=== PATIENT | male | born 1995 | race Two or more races ===

== ENCOUNTER 2025-06-24 17:42 | Emergency (ER) | payer MEDICAID, OTHER ==
[~2025-06-24] VITALS: Ht 167.6 cm; Wt 79.5 kg
[2025-06-24 18:26] VITALS: PULSE 88; RESP 20; O2SAT 100
--- NOTE | 2025-06-24 18:37 | ED.PDOC ---
HPI (NEURO) HPI Comments HPI: Poor Historian. 29-year-old male with a recent diagnosis of seizure proximally seven months ago currently on Keppra. Patient states compliance with his medications. Patient states they recently increased his dose of Keppra. Patient had a witnessed seizure episode today while he was laying in bed. No fall or trauma. Patient is not sure with the ever performed in a CT scan of his head since he has been diagnosed with a seizure disorder. Patient denies any use of drugs or any other complaints. Patient is awake alert oriented answers questions appropriately and follows commands. Patient later in the course stated that he has nausea and vomiting for at least two weeks. Past Medical History: Seizure disorder, gastritis Past Surgical History: Denies any REVIEW OF SYSTEMS: CONSTITUTIONAL: Denies acute: fever, diaphoresis, chills, generalized weakness. HEAD: Denies acute: headache, photophobia Eyes: Denies acute: Double vision, vision loss, eye pain, eye discharge. EARS: Denies acute: tinnitus, hearing loss, ear discharge, ear pain, THROAT: Denies acute: sore throat, swelling, difficulty swallowing , pain with swallowing, change in voice. NECK: Denies acute: neck pain, neck swelling, stiff neck. HEART: Denies acute : chest pain, palpitations, LUNGS: Denies acute: SOB, wheezing, cough, hemoptysis ABDOMEN: Denies acute: abdominal pain, diarrhea, melena , hematemesis, hematochezia SKIN: Denies acute: rash, redness, lesions, itchiness. EXTREMITIES: Denies acute: calf pain, numbness, tingling, weakness, denies pain in extremity. Denies acute: Low back pain. Neuro: Denies acute: focal neurological deficit, motor or sensory focal neurological deficit, dizziness, change in mental status, loss of bowel or bladder function, cauda equina like symptoms. : Denies acute: dysuria, hematuria, flank pain, increase in urinary frequency. PSYCH: Denies acute: hallucination, suicidal ideation, homicidal ideation. PHYSICAL EXAM: General: ----no---acute distress, awake and alert. Head: normocephalic, atraumatic. No raccoon's eyes, no gatica sign. Neck: supple, trachea is midline, no swelling. Throat: Normal phonation. Eyes:, no erythema, no purulent discharge, no proptosis, no icterus. Heart: regular rate, regular rhythm, no significant murmur appreciated. Lungs: no apparent respiratory distress, Able to speak in full sentences. No wheezing, no rhonchi, no crackles. No stridors Clear to auscultation bilaterally. Abdomen: non tender to palpation, non distended, soft, no guarding, no rebound, + bowel sounds. Neuro: Awake, Alert, oriented to name, self, situation, follows commands GCS=15. Speech is normal. Skin: no petechia, no purpura, no cyanosis, non-pale, not jaundice. Lower extremities: --no - Pitting edema no deformity, no focal swelling, no calf TTP. Makes eye contact. moves all four extremities. Face: no apparent facial droop. PERRLA, EOM-I CN 2-12 are grossly intact, No nystagmus. ED COURSE: DISCLAIMER: This medical document was created using an electronic medical record system with voice recognition software and computerized dictation system. Although this document has been carefully reviewed, there might still be some phonetic and typographical errors. Occasional wrong-word or "sound-alike" substitutions may have occurred due to the inherent limitations of voice recognition software. These areas are purely typographical due to imperfections of the software programs and do not reflect any compromise in the patient's medical care. Please read the chart carefully and recognize, using context, where these substitutions have occurred. Chief Complaint: Seizure Time Seen by MD: 18:19 Reviewed Notes: Allergies Information Source: Patient Was a procedure done? Was a procedure done?: No Differential Diagnosis (SZ) Seizure: Other (SEIZUREDDX include not limited to CVA, cerebellar ischemia/infarct, carotid stenosis, vertebral/carotid artery dissection,, vertebrobasillary insufficiency, Intracranial mass/infection/bleed, encephalopathy, elctrolyte abnormality, thyroid disease, multiple sclerosis, hypoglycemia, drug toxicity, cardiac arrhythmia, sub-theraputic anti-convulsion medications, known seizure disorder, pseudo-seizure.) X-Ray, Labs, Meds, VS Vital Signs Date Time Temp Pulse Resp B/P (MAP) Pulse Ox O2 Delivery O2 Flow Rate FiO2 12/6/25 00:15 98.1 78 18 127/91 (103) 97 98.1 06/24/25 23:24 98.1 79 18 111/66 (81) 97 98.1 06/24/25 19:50 90 18 97 Nasal Cannula* 2 28 06/24/25 19:50 98.1 77 18 133/77 (95) 97 98.1 06/24/25 19:00 108 28 132/60 (84) 90 06/24/25 18:26 88 20 100 Room Air* 0 21 06/24/25 17:49 98.0 98 22 148/96 98 98.0 Lab Test 06/24/25 22:52 06/24/25 21:55 06/24/25 20:03 06/24/25 18:45 Range/Units Urine Color Light-yellow Yellow Urine Clarity Clear Clear Urine pH 5.5 5.0-9.0 Urine Specific [place] 1.018 1.001-1.035 Urine Protein 2+ H Negative Urine Ketones 1+ H Negative Urine Blood 1+ H Negative /uL Urine Nitrite Negative Negative Urine Bilirubin Negative Negative Urine Urobilinogen Normal Negative mg/dL Urine Leukocyte Esterase Negative Negative /uL Urine RBC 1 0 - 3 /hpf Urine Microscopic WBC 2 0-3 /HPF Urine Squamous Epithelial Cells Few <5 /hpf Urine Bacteria None seen None Seen /hpf Urine Glucose Normal Normal mg/dL Urine Opiates Screen Neg NEGATIVE Urine Fentanyl Screen Neg NEGATIVE Urine Barbiturates Screen Neg NEGATIVE Urine Phencyclidine Screen Neg NEGATIVE Urine Amphetamines Screen Neg NEGATIVE Urine Benzodiazepines Screen Pos NEGATIVE Urine Cocaine Screen Neg NEGATIVE Urine Cannabinoids Screen Pos NEGATIVE Lactic Acid Level 2.9 *H 22.0 *H 0.4-2.0 mmol/L White Blood Count 14.9 #H 23.0 H 4.4-10.8 10^3/uL Red Blood Count 5.21 5.47 4.5-5.90 10^6/uL Hemoglobin 13.7 14.4 13.5-17.5 g/dL Hematocrit 42.4 # 48.2 41.0-53.0 % Mean Corpuscular Volume 81.5 # 88.2 80.0-100.0 fL Mean Corpuscular Hemoglobin 26.3 L 26.4 L 28.0-32.0 pg Mean Corpuscular Hemoglobin Concent 32.3 29.9 L 32.0-36.0 g/dL Red Cell Distribution Width 18.1 H 18.4 H 11.8-14.3 % Platelet Count 331 446 140-450 10^3/uL Mean Platelet Volume 8.1 8.9 6.9-10.8 fL Neutrophils (%) (Auto) 86.7 H 70.4 37.0-80.0 % Lymphocytes (%) (Auto) 8.9 L 21.3 10.0-50.0 % Monocytes (%) (Auto) 3.7 6.5 0.0-12.0 % Eosinophils (%) (Auto) 0.5 1.1 0.0-7.0 % Basophils (%) (Auto) 0.2 0.7 0.0-2.0 % Neutrophils # (Auto) 12.9 H 16.2 H 1.6-8.6 10 ^3/uL Lymphocytes # (Auto) 1.3 4.9 0.4-5.4 10 ^3/uL Monocytes # (Auto) 0.5 1.5 H 0-1.3 10 ^3/uL Eosinophils # (Auto) 0.1 0.2 0-0.8 10 ^3/uL Basophils # (Auto) 0 0.2 0-0.2 10 ^3/uL Nucleated Red Blood Cells 0.2 0.1 % Sodium Level 139 # 145 136-145 mmol/L Potassium Level 4.2 3.3 L 3.5-5.1 mmol/L Chloride Level 105 104 98-107 mmol/L Carbon Dioxide Level 20 # < 10 *L 20-31 mmol/L Anion Gap 14 31.60964 H 5-15 Blood Urea Nitrogen 11 13 9-23 mg/dL Creatinine 1.06 1.36 H 0.700-1.30 mg/dL Glomerular Filtration Rate Calc 98 73 >90 mL/min BUN/Creatinine Ratio 10.4 9.6 L 10.0-20.0 Serum Glucose 135 H 164 H 74-106 mg/dL Calcium Level 9.7 10.9 H 8.7-10.4 mg/dL Total Bilirubin 0.3 0.4 0.2-1.0 mg/dL Aspartate Amino Transferase (AST) 28 25 13-40 U/L Alanine Aminotransferase (ALT) 30 36 7-40 U/L Alkaline Phosphatase 115 131 H 46-116 U/L Total Protein 8.3 H 9.3 H 5.7-8.2 g/dL Albumin 5.4 H 5.9 H 3.2-4.8 g/dL Levetiracetam Level Pending Prothrombin Time 10.6 9.3-11.8 sec Prothrombin Time INR 1.00 0.9-1.15 Activated Partial Thromboplast Time 27.9 24.5-34.5 SEC Magnesium Level 2.6 1.6-2.6 mg/dL Troponin I High Sensitivity 12 </=54 ng/L Current Medications Medications (Trade) Dose Ordered Sig/Reece Route Start Time Stop Time Status Last Admin Levetiracetam 100 ml @ 400 mls/hr ONCE ONCE IV 06/24/25 18:45 06/24/25 18:59 DC 06/24/25 18:46 Sodium Chloride 1,000 ml @ 1,000 mls/hr Q1H ONCE IV 06/24/25 18:45 06/24/25 19:44 DC 06/24/25 18:48 Lorazepam (Ativan Inj) 2 mg ONCE ONCE IV 06/24/25 18:45 06/24/25 18:46 DC 06/24/25 18:46 Ondansetron HCl (Zofran) 4 mg ONCE ONCE IV 06/24/25 18:45 06/24/25 18:46 DC 06/24/25 18:46 Lactated Ringer's 1,900 ml @ 1,000 mls/hr ONCE ONCE IV 06/24/25 19:30 06/24/25 21:23 DC 06/24/25 19:30 Vancomycin HCl 250 ml @ 250 mls/hr ONCE ONCE IV 06/24/25 20:30 06/24/25 21:29 DC 06/24/25 20:30 Cefepime HCl 50 ml @ 12.5 mls/hr ONCE ONCE IV 06/24/25 19:30 06/24/25 23:29 DC 06/24/25 19:30 Lactated Ringer's 1,000 ml @ 1,000 mls/hr Q1H ONCE IV 06/24/25 19:45 06/24/25 20:44 DC 06/24/25 19:45 Metoclopramide HCl (Reglan Injection) 5 mg ONCE ONCE IV 06/24/25 21:15 06/24/25 21:16 DC 06/24/25 21:25 Acetaminophen/ Hydrocodone Bitart ([place] 5/325MG Tab) 1 tab ONCE ONCE PO 06/24/25 22:30 06/24/25 22:31 DC 06/24/25 22:30 X-Ray, Labs, Meds, VS Comment [address] [address] Ph: [phone] DIAGNOSTIC IMAGING Diagnostic Imaging Report : [id number] Signed PATIENT: MAGGIE SAHAT: [id number] UNIT: [id number] : 1995 LOC: ER ROOM / BED: / AGE / SEX: 29 / M ADM STATUS: REG ER SERVICE 183 ORDERING PHYSICIAN: ROSY CARMONA DO PROCEDURE(s): HWOCT - HEAD WITHOUT CONTRAST REASON: DAJA ORDER NUMBER(s): [id number], ACCESSION NUMBER(s): [id number] CLINICAL HISTORY: TECHNIQUE: Helical scanning was performed of the head from the skull base to the vertex. Multiplanar reconstructions were performed. This exam was performed according to our departmental dose optimization program. Up-to-date CT equipment and radiation dose reduction techniques are utilized as appropriate. WID: COMPARISON: CT HEAD WITHOUT CONTRAST on DOS: 12/17/24 FINDINGS: There is no acute intracranial hemorrhage, CT evidence of acute ischemic changes, mass effect, midline shift, or extra-axial fluid collection. Ventricles are within normal limits The imaged intraorbital structures are unremarkable The imaged paranasal sinuses are clear. The mastoid air cells are clear. The calvarium is intact. IMPRESSION: NO ACUTE INTRACRANIAL FINDINGS ATED BY: PATRICA OAKES MD DICTATED DATE/TIME: 06/24/252038 SIGNED BY: PATRICA OAKES MD SIGNED DATE/TIME: 06/24/252038 CC: [address] [address] Ph: [phone] DIAGNOSTIC IMAGING Diagnostic Imaging Report : [id number] Signed PATIENT: MAGGIE SAHAT: [id number] UNIT: [id number] : 1995 LOC: ER ROOM / BED: / AGE / SEX: 29 / M ADM STATUS: REG ER SERVICE 183 ORDERING PHYSICIAN: ROSY CARMONA DO PROCEDURE(s): CXRP - CHEST PORTABLE REASON: daja ORDER NUMBER(s): [id number], ACCESSION NUMBER(s): [id number] CHEST RADIOGRAPH Indication: sz Technique: Single frontal view of the chest was obtained COMPARISON: XY CHEST PORTABLE on DOS: 02/25/25, XY CHEST PORTABLE on DOS: 12/17/24 FINDINGS: Lines and Tubes: None Lungs: Clear Pleura: No effusion. No pneumothorax. Cardiomediastinal contours: Unremarkable Bones: Unremarkable IMPRESSION: No acute disease. ATED BY: SUJIT JOHNSON MD DICTATED DATE/TIME: 06/24/251908 SIGNED BY: SUJIT JOHNSON MD SIGNED DATE/TIME: 06/24/251908 CC: Time of 1ST Reevaluation: 18:41 (I was just notified that the patient had another seizure episode.) Reevaluation 1ST: Unchanged Time of 2ND Reevaluation: 21:32 (The case was discussed with the [place] admitting team (HPI, physical exam, labs and diagnostic tests that were available at the time of disposition, ED course, treatment plan) on the phone. They agreed to transfer the patient to their service by ALS for further evaluation and treatment. --Bear-. Authorization number is--[id number] five [phone] [id number]. I was informed that the patient has history of cannabis marijuana abuse. Patient is not postictal in his back to his baseline.) Reevaluation 2ND: Improved Patient Education/Counseling: Diagnosis, Treatment Family Education/Counseling: No Family Present Comments MDM: patient presented with the above HPI.---seizure---workup was initiated. patient was found with the above mentioned diagnosis. the following medications were ordered: please refer to order lists of meds and tests obtained by myself Dr. Carmona. Patient ED course and VS have been stabilized. Patient has been reassessed in the ED and remained in a stable condition. Pertinent incidental findings were discussed with the patient and/or family. Patient/family voices understanding and is agreeable with plan. Patient has been observed in the ED adequate length of time to insure improvement/stability. Escalation of care considered: Consideration of escalation to observation or admission Patient meets sepsis criteria on initial presentation. Sepsis protocol was initiated. Patient was given fluids and empiric antibiotics. Patient was given antiemetics as well. Patient was transferred per insurance requirement to [facility] for further evaluation and treatment of their presentation. All the reports of any imaging studies that were ordered by myself were reviewed by myself. Departure 1 Departure Time of Disposition: 18:37 Impression: Primary Impression: Seizure Additional Impressions: Nausea and vomiting Sepsis Disposition: 02 SHORT TERM HOSPITAL Admit to: [facility] Condition: Guarded Discharged With: Self Critical Care Note Critical Care Time?: Yes (55 min-critical care time only) Critical care comment: Due to a high probability of clinically significant, life threatening deterioration, the patient required my highest level of preparedness to intervene emergently and I personally spent this critical care time directly and personally managing the patient. This critical care time included obtaining a history; examining the patient; pulse oximetry; ordering and review of studies; arranging urgent treatment with development of a management plan; evaluation of patient's response to treatment; frequent reassessment; and, discussions with other providers. This critical care time was performed to assess and manage the high probability of imminent, life-threatening deterioration that could result in multi-organ failure. It was exclusive of separately billable procedures and treating other patients and teaching time. Please see my other sections and the rest of the note for further information on patient assessment and treatment. I personally scribed for ROSY CARMONA DO ([email or web address]) on 06/24/25 at 21:19. Electronically submitted by [facility] ([email or web address]). ROSY CARMONA DO Jun 24, 2025 18:37
[2025-06-24] MEDS: LORazepam 2MG/ML-1ML VIAL IV ONE (18:46)
[2025-06-24] MEDS: LORazepam 2MG/ML-1ML VIAL ONE (18:46)
[2025-06-24] MEDS: levETIRAcetam 1000 mg/100ml 100 ML IV ONE (18:46)
[2025-06-24] MEDS: ONDANSETRON HCL 4 MG/2 ML VIAL IV ONE (18:46)
[2025-06-24] MEDS: ONDANSETRON HCL 4 MG/2 ML VIAL ONE (18:47)
[2025-06-24] MEDS: SODIUM CHLORIDE 0.9% 1,000 ML IV ONE (18:48)
[2025-06-24 19:04] LABS: Hematocrit 48.2 % (41.0-53.0); Hemoglobin 14.4 g/dL (13.5-17.5); Mean Corpuscular Hemoglobin 26.4 pg (28.0-32.0); Mean Corpuscular Volume 88.2 fL (80.0-100.0); Nucleated Red Blood Cells % 0.1 %
--- NOTE | 2025-06-24 19:11 | DVH ---
CHEST RADIOGRAPH Indication: sz Technique: Single frontal view of the chest was obtained COMPARISON: XY CHEST PORTABLE on DOS: 02/25/25, XY CHEST PORTABLE on DOS: 12/17/24 FINDINGS: Lines and Tubes: None Lungs: Clear Pleura: No effusion. No pneumothorax. Cardiomediastinal contours: Unremarkable Bones: Unremarkable IMPRESSION: No acute disease.
[2025-06-24 19:17] LABS: Alanine Aminotransferase 36 U/L (7-40); Anion Gap 31.00001 (5-15); BUN/Creatinine Ratio 9.6 (10.0-20.0); Bilirubin, Total 0.4 mg/dL (0.2-1.0); Blood Urea Nitrogen 13 mg/dL (9-23); Chloride 104 mmol/L (98-107)
[2025-06-24 19:19] LABS: Albumin 5.9 g/dL (3.2-4.8); Alkaline Phosphatase 131 U/L (46-116); Calcium 10.9 mg/dL (8.7-10.4); Glucose 164 mg/dL (74-106); Magnesium 2.6 mg/dL (1.6-2.6); Potassium 3.3 mmol/L (3.5-5.1); Sodium 145 mmol/L (136-145); Total Protein 9.3 g/dL (5.7-8.2)
[2025-06-24 19:21] LABS: Carbon Dioxide < 10 mmol/L (20-31)
[2025-06-24] MEDS: CEFEPIME 1GM/50ML 50 ML IV ONE (19:30)
[2025-06-24] MEDS: LACTATED RINGER'S 1,900 ML IV ONE (19:30)
[2025-06-24 19:36] LABS: Lactic Acid w/Reflex 22.0 mmol/L (0.4-2.0)
[2025-06-24] MEDS: LACTATED RINGER'S 1,000 ML IV ONE (19:45)
[2025-06-24 19:50] VITALS: PULSE 90; RESP 18; O2SAT 97
[2025-06-24] MEDS: VANCOMYCIN 1GM/250ML KIT 250 ML IV ONE (20:30)
--- NOTE | 2025-06-24 20:39 | DVH ---
CLINICAL HISTORY: SZ TECHNIQUE: Helical scanning was performed of the head from the skull base to the vertex. Multiplanar reconstructions were performed. This exam was performed according to our departmental dose optimization program. Up-to-date CT equipment and radiation dose reduction techniques are utilized as appropriate. WID: COMPARISON: CT HEAD WITHOUT CONTRAST on DOS: 12/17/24 FINDINGS: There is no acute intracranial hemorrhage, CT evidence of acute ischemic changes, mass effect, midline shift, or extra-axial fluid collection. Ventricles are within normal limits The imaged intraorbital structures are unremarkable The imaged paranasal sinuses are clear. The mastoid air cells are clear. The calvarium is intact. IMPRESSION: NO ACUTE INTRACRANIAL FINDINGS
[2025-06-24 20:50] LABS: Hematocrit 42.4 % (41.0-53.0); Hemoglobin 13.7 g/dL (13.5-17.5); Mean Corpuscular Hemoglobin 26.3 pg (28.0-32.0); Mean Corpuscular Volume 81.5 fL (80.0-100.0); Nucleated Red Blood Cells % 0.2 %
[2025-06-24 21:04] LABS: Alanine Aminotransferase 30 U/L (7-40); Alkaline Phosphatase 115 U/L (46-116); Anion Gap 14 (5-15); BUN/Creatinine Ratio 10.4 (10.0-20.0); Blood Urea Nitrogen 11 mg/dL (9-23); Calcium 9.7 mg/dL (8.7-10.4); Chloride 105 mmol/L (98-107); Potassium 4.2 mmol/L (3.5-5.1); Sodium 139 mmol/L (136-145)
[2025-06-24 21:05] LABS: INR 1.0 (0.9-1.15); Partial Thromboplastin Time 27.9 SEC (24.5-34.5); Prothrombin Time 10.6 sec (9.3-11.8)
[2025-06-24 21:07] LABS: Albumin 5.4 g/dL (3.2-4.8); Bilirubin, Total 0.3 mg/dL (0.2-1.0); Carbon Dioxide 20 mmol/L (20-31); Glucose 135 mg/dL (74-106); Total Protein 8.3 g/dL (5.7-8.2)
[2025-06-24] MEDS: METOCLOPRAMIDE HCL 5MG/ml INJ 2ml VIAL IV ONE (21:25)
[2025-06-24] MEDS: HYDROcodone-ACET 5/325MG TAB PO ONE (22:30)
[2025-06-24 23:05] LABS: Urine Protein, UAD 2+ (Negative)
[2025-06-24 23:19] LABS: Amphetamine Screen, Urine Neg (NEGATIVE)
[2025-06-24 23:20] LABS: Barbiturate Scree,Urine Neg (NEGATIVE); Benzodiazephine Screen, Urine Pos (NEGATIVE); Cannabinoid Screen, Urine Pos (NEGATIVE); Cocaine Screen, Urine Neg (NEGATIVE); Opiate Scree,Urine Neg (NEGATIVE); Phencyclidine Screen, Urine Neg (NEGATIVE)
[2025-06-25 00:15] VITALS: BP 127/91; PULSE 78; RESP 18; TEMP 98.1; O2SAT 97
== END 2025-06-25 00:55 | disposition short-term general hospital (02) ==
LOC: EDBD 17:42 → ER 17:42
DX: A41.9 Sepsis, unspecified organism (principal); G40.909 Epilepsy, unspecified, not intractable, without status epilepticus; R11.2 Nausea with vomiting, unspecified; Z79.899 Other long term (current) drug therapy; Z87.19 Personal history of other diseases of the digestive system
CPT/HCPCS: 36415; 70450; 71045; 80053; 80307; 81001; 82542; 83605; 83735; 84484; 85025; 85610; 85730; 87040; 96361; 96365; 96366; 96368; 96375; 99291; J0692; J1953; J2060; J2405; J2765; J3373; J7030